=== PATIENT | female | born 1960 | race Caucasian/White ===

== ENCOUNTER → 2018-01-23 11:16 | Emergency (ER) | payer BC ==
--- NOTE | 2018-01-23 16:53 | ED ---
GI/ HPI - HPI Summary HPI Summary: Patient is a 57 year-old female who presents emergency department for bladder pain and pressure that started yesterday. Patient notes she has history of frequent UTIs. She states she has not recently been on an antibiotic. She notes yesterday she felt feverish and had right flank pain but symptoms have improved today. She denies history of kidney stones. Pt. states she has seen numerous urologist without finding etiology of frequent UTIs. She otherwise denies upper respiratory symptoms such as coughing, sore throat, vomiting, diarrhea. Symptoms are [id number] in severity. No current modifying factors. She has no significant past medical history. - History of Current Complaint Hx Obtained From: Patient - Allergy/Home Medications Allergies/Adverse Reactions: Allergies Allergy/AdvReac Type Severity Reaction Status Date / Time MS Codeine [Codeine] Allergy Unknown Wheezing Verified 10/22/16 11:41 MS Penicillins [PCN] Allergy Unknown Wheezing Verified 10/22/16 11:41 PMH/Surg Hx/FS Hx/Imm Hx Previously Healthy: Yes Endocrine/Hematology History: Denies: Hx Diabetes Cardiovascular History: Denies: Hx Hypertension, Hx Pacemaker/ICD History: Denies: Hx Renal Disease Sensory History: Denies: Hx Hearing Aid Psychiatric History: Denies: Hx Panic Disorder - Surgical History Surgery Procedure, Year, and Place: EYELIDS - LIFT. HEAD- SKULL( NOT INTERNAL) - Immunization History Date of Tetanus Vaccine: Unk Infectious Disease History: Denies: Traveled Outside the [place] in Last 30 Days - Family History Known Family History: Positive: Other - Noncontributory - Social History Occupation: Employed Full-time Lives: With Family Substance Use Type: Reports: None Review of Systems Positive: Chills Positive: Other - Suprapubic pain Genitourinary: Negative All Other Systems Reviewed And Are Negative: Yes Physical Exam Triage Information Reviewed: Yes Vital Signs Reviewed: Yes Appearance: Positive: Well-Appearing - Pt. lying in bed in NAD. Well appearing and nontoxic. Skin: Positive: Warm, Dry Head/Face: Positive: Normal Head/Face Inspection Eyes: Positive: Normal Neck: Positive: Supple Respiratory/Lung Sounds: Positive: Clear to Auscultation, Breath Sounds Present Cardiovascular: Positive: Normal, RRR Abdomen Description: Positive: Other: - Abdomen is soft mild pain over the suprapubic region. No rebound tenderness or guarding. No CVA tenderness on percussion bilaterally. Neurological: Positive: Normal, CN Intact II-III Psychiatric: Positive: Affect/Mood Appropriate GIGU Course/Dx - Course Course Of Treatment: Patient resenting with bladder pressure and history of UTIs. She states that yesterday she felt feverish and had some mild right flank pain which have resolved today. Patient is afebrile and well-appearing. On exam she has mild suprapubic abdominal pain and she has absolutely no CVA tenderness bilaterally. Patient has no history of kidney stones. She has been worked up by numerous urologist. Patient is comfortable with obtaining urinalysis today and blood work at this time. Urinalysis is nitrate positive with bacteria and leukocytes. We'll treat with Cipro. Advised increased fluids. Tylenol or Motrin for pain as directed. Close follow-up with PCP. To return to the ER for fever, flank pain, vomiting or if concerned. Patient understands and agrees with this plan. - Diagnoses Differential Diagnoses - Female: Urinary Tract Infection, Ureteral Calculi Provider Diagnoses: UTI (urinary tract infection) Discharge - Sign-Out/Discharge Documenting (check all that apply): Patient Departure - Discharge Plan Condition: Good Disposition: HOME Referrals: Ruben Carrero MD [Primary Care Provider] - - Billing Disposition and Condition Condition: GOOD Disposition: Home
[2018-01-23 18:22] LABS: Urine Appearance Clear; Urine Blood 1+ (Negative); Urine Color Yellow; Urine Ketones Negative (Negative); Urine Protein Negative (Negative); Urine Red Blood Cell 1+(3-5/hpf) (Absent); Urine Specific Gravity 1.008 (1.010-1.030); Urine Urobilinogen Negative (Negative); Urine White Blood Cell 3+(>20/hpf) (Absent)
--- NOTE | 2018-01-25 06:26 | ED ---
Progress - Progress Note Progress Note: Patient's preliminary urine culture reveals greater than 100,000 Escherichia coli. Patient was started on ciprofloxacin and according to note (system was down this day so no formal amb orders placed). Final culture pending. Course/Dx - Course Course Of Treatment: Patient resenting with bladder pressure and history of UTIs. She states that yesterday she felt feverish and had some mild right flank pain which have resolved today. Patient is afebrile and well-appearing. On exam she has mild suprapubic abdominal pain and she has absolutely no CVA tenderness bilaterally. Patient has no history of kidney stones. She has been worked up by numerous urologist. Patient is comfortable with obtaining urinalysis today and blood work at this time. Urinalysis is nitrate positive with bacteria and leukocytes. We'll treat with Cipro. Advised increased fluids. Tylenol or Motrin for pain as directed. Close follow-up with PCP. To return to the ER for fever, flank pain, vomiting or if concerned. Patient understands and agrees with this plan. - Diagnoses Provider Diagnoses: UTI (urinary tract infection) Discharge - Sign-Out/Discharge Documenting (check all that apply): Post-Discharge Follow Up - Discharge Plan Condition: Good Disposition: HOME Referrals: Ruben Carrero MD [Primary Care Provider] - - Billing Disposition and Condition Condition: GOOD Disposition: Home
--- NOTE | 2018-01-26 06:50 | PN ---
Progress Note - Progress Note Date of Service: 01/23/18 Note: Urine culture final grew Escherichia coli Patient was placed on Cipro Cipro sensitive to organism Nothing further this time Dior Lira, PAC
== END | disposition home or self-care (01) ==
LOC: ED 11:16
DX: N39.0 Urinary tract infection, site not specified (principal); B96.20 Unspecified Escherichia coli [E. coli] as the cause of diseases classified elsewhere
CPT/HCPCS: 81003; 81015; 87077; 87086; 87186; 99282

== ENCOUNTER 2018-11-25 07:30 | Inpatient (IN) | payer BC ==
--- NOTE | 2018-11-14 19:04 | HP ---
AMENDED REPORT NOW INCLUDES DESIGNATED COSIGNER HISTORY AND PHYSICAL: DATE OF ADMISSION/SURGERY: 11/25/18 DATE OF OFFICE VISIT: 11/14/18 ATTENDING SURGEON: Dr. Hannah Richardson.* (DICTATED BY WILLIAM FERNANDEZ) PROCEDURE: Right total hip arthroplasty. CHIEF COMPLAINT: Right hip pain. HISTORY OF PRESENT ILLNESS: Ms. Figueroa is a 58-year-old female with years of increasing severe right hip pain. Over the last 3 years, her right hip pain has become more severe. She reports an 8/10 pain in the right groin that is sharp achy pain. Pain is made worse with walking more than a block. The pain is made worse with rotating the hip. In the past, she has tried anti- inflammatories and intraarticular hip injections with minimal or temporary relief. She has tried multiple attempts at weight loss. At this point, she would like to proceed with surgery. PAST MEDICAL HISTORY: GERD, osteoarthritis, and obstructive sleep apnea. PAST SURGICAL HISTORY: Right knee arthroscopy, right elbow surgery. MEDICATIONS: 1. Cyclobenzaprine HCl 10 mg 1 p.o. q.8 hours as needed for muscle spasms. 2. Oxycodone/acetaminophen 5/325 mg 1 to 2 tabs p.o. every 12 hours as needed for pain. 3. Esomeprazole magnesium 20 mg 1 p.o. daily. ALLERGIES: CODEINE and PENICILLIN, both result in rash. FAMILY HISTORY: Negative for cardiovascular disease, diabetes, stroke, hypertension, and cancer. 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 She lives alone. She denies tobacco or recreational drug use. She drinks about 2 alcoholic beverages a week. She is right hand dominant and normally active. REVIEW OF SYSTEMS: General: Negative for fevers, chills, night sweats, unexplained weight loss or gain. No known anesthesia problems. HEENT: Negative for headache, lightheadedness, syncopal episodes, visual changes. Integumentary: Negative for abrasions, lesions, open wounds. Cardiothoracic: Negative for hypertension, chest pain, palpitations, edema. Respiratory: Negative for shortness of breath with exertion, chronic cough, wheezing. GI: Negative for nausea, vomiting, diarrhea, constipation, and GERD. : Positive for urgency, history of UTIs. Negative for nocturia, urinary frequency, or kidney problems. Musculoskeletal: Positive for right hip pain. Negative for chronic or intermittent back pain and history of fractures. Neurologic: Negative for paresthesias, numbness, history of stroke, seizures, poor balance. Negative for anxiety, depression. Endocrine: Negative for diabetes or thyroid issues. Hematologic: Negative for easy bruising, anemia, bleeding disorders, or history of DVT. ID: Negative for history of MRSA, hep C, HIV. PHYSICAL EXAMINATION GENERAL: Well-developed, well-nourished 58-year-old female, in no acute distress. VITAL SIGNS: Height 67 inches, weight 229, pulse 70, BP 116/80, respiratory rate 18, temperature 96.4, BMI 35.9. HEENT: Normocephalic, atraumatic. PERRLA. Extraocular movements intact. NECK: Supple. No palpable lymph nodes. Throat is clear. PULMONARY: Lungs are clear to auscultation bilaterally. No wheezes, rales, or rhonchi. CARDIO: Regular rate and rhythm. S1 and S2 normal. No murmurs, rubs, or gallops. No edema. ABDOMEN: Positive bowel sounds. Soft and nontender. NEUROLOGIC: A and O x3. Cranial nerves II through XII intact. Sensation is intact to light touch. MUSCULOSKELETAL: Right lower extremity: The patient's skin is intact. No abrasions or open sounds. No palpable masses or lymph nodes. She has 85 degrees of flexion at the hip with severe pain. She lacks 10 degrees from neutral and has no internal rotation. Any attempt to rotate the hip causes pain in the groin. She has 30 degrees of external rotation distally. No edema , varicosities, or hyperreflexia. 5/5 ankle dorsiflexion and plantarflexion strength. Full sensation to light touch in all nerve distributions and 2+ palpable DP pulse. 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 There is [id number] contact, osteophyte formation, and subchondral sclerosis. IMPRESSION: Right hip severe osteoarthritis. PLAN: The patient is scheduled to undergo a right total hip arthroplasty with Dr. Richardson on 11/25/18. The procedure as well as the risks and benefits were discussed with the patient by Dr. Richardson and she agrees to proceed. She will return to the office in 10 to 14 days postop for followup and suture removal. Upon discharge from the hospital, she will be given a prescription for Percocet for postoperative pain management. WILLIAM CARMONA [id number]/[facility] #: [id number] [facility] SOUTHAMPTON HOSPITALDriss
[~2018-11-25 07:30] MED LIST: Buffered Lidocaine 1% SYRIN* 1 ML/SYRINGE INTRADERM ONE; Famotidine IV* 10 MG/ML 2 ML (20 mg) IV ONE; Lactated Ringers 1000 ML Bag* 1,000 ML IV SCH; Tranexamic Acid 1,000 MG in NS 0.9% 50 ML* (outpatient use) IV SCH
--- OUTSIDE RECORDS SUMMARY | 2018-11-25 07:34 | XMS REPORT | Continuity of Care Document ---
:1960 External Reference #:[id number] Author Name Amira Chirinos Care Team Providers Name Role Phone Nicole Condon MD Primary Care Physician Unavailable Payers Date Identification Numbers Payment Provider Subscriber Policy Number: [id number] [employer] Thomas Figueroa PayID: [id number] [address] [address] [place] [address] Problems Active Problems Provider Date Dyspnea Maria L Greenberg MD Onset: 08/27/2016 Difficulty breathing Maria L Greenberg MD Onset: 08/27/2016 Gastroesophageal reflux disease Maria L Greenberg MD Onset: 08/27/2016 Obstructive sleep apnea syndrome Maria L Greenberg MD Onset: 09/27/2016 Localized, primary osteoarthritis of the pelvic Hannah Richardson M.D. Onset: 02/2019 region and thigh Trochanteric bursitis Hannah Richardson M.D. 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 Tablets as needed muscle spasms Oxycodone-Acetaminophen 1-2 tabs by 30tabs M25.551 Hannah Richardson, 2018 mouth every 12 M.D. 5-325mg Tablets hours as needed for pain Esomeprazole Magnesium Take 1 Capsule 90caps K21.9 Maria L Yari, 2017 20mg By Mouth Every MD Capsules DR Day History Medications Meloxicam 1 by mouth 14tabs M25.551 Hannah Richardson, 09/12/2018 - 15mg Tablets every day M.D. Unknown No Active Medications Unknown 08/27/2016 - 08/27/2016 Esomeprazole Sodium 1 by mouth 90units K21.9 Maria L Greenberg, 08/27/2016 - every day MD 09/09/2017 20mg Solution Rec Vital Signs Date Vital Result Comment 10/29/2018 8:16am Height 67 inches 5'7" Weight 235.00 lb Heart Rate 75 /min BP Systolic 121 mmHg BP Diastolic 87 mmHg O2 % BldC Oximetry 95 % BMI (Body Mass Index) 36.8 kg/m2 10/10/2018 8:37am Height 67 inches 5'7" Weight 235.00 lb BP Systolic 124 mmHg BP Diastolic 84 mmHg Body Temperature 97.5 F BMI (Body Mass Index) 36.8 kg/m2 09/12/2018 8:51am Height 67 inches 5'7" Weight 239.00 lb Heart Rate 64 /min BP Systolic 128 mmHg BP Diastolic 86 mmHg Pain Level 9 BMI (Body Mass Index) 37.4 kg/m2 09/27/2016 1:58pm Height 67 inches 5'7" Weight 244.00 lb Heart Rate 60 /min BP Systolic Sitting 108 mmHg left arm, large cuff BP Diastolic Sitting 82 mmHg left arm, large cuff Respiratory Rate 16 /min O2 % BldC Oximetry 97 % room air BMI (Body Mass Index) 38.2 kg/m2 08/27/2016 10:17am Height 67 inches 5'7" Weight 240.00 lb Heart Rate 63 /min BP Systolic Sitting 124 mmHg BP Diastolic Sitting 80 mmHg Respiratory Rate 16 /min O2 % BldC Oximetry 94 % BMI (Body Mass Index) 37.6 kg/m2 Results Test Date Facility Test Result H/L Range Note Laboratory test 10/29/2018 [facility] CRP High <pending> finding [address] [place] [address] [phone] Laboratory test 10/29/2018 [facility] Hemoglobin A1c <pending> finding [address] (Glyco HGB) [place] [address] [phone] Insulin Level <pending> Copper, Serum <pending> Zinc Serum <pending> Vitamin B12 And Folate 10/29/2018 [facility] Vitamin B12 < pending> Serum [address] [place] [address] [phone] Folic Acid (Folate) <pending> Laboratory test 10/29/2018 [facility] Vitamin D Total <pending> finding [address]) [place] [address] [phone] Vitamin B6 <pending> Thyroid Panel 10/29/2018 [facility] Free T4 (Free <pending> [address] Thyroxine) [place] [address] [phone] Thyroxine <pending> TSH (Thyroid Stim Horm) <pending> Laboratory test finding 10/29/2018 [facility] T3 Total <pending > [address] [place] [address] [phone] T3 Free <pending> Thyroperoxidase AB <pending> Thyroglobulin AB <pending> Procedures Date Code Description Status 09/11/2016 24476 Sleep Study Unattended,HRT Rate,Oxygen Sat,Resp Completed Effort/Airflow Encounters Type Date Location Provider Dx Diagnosis Office Visit 10/10/2018 [facility] Hannah Richardson, M25.551 Pain in right hip 8:30a [facility] M70.61 Trochanteric bursitis, right hip M16.11 Unilateral primary osteoarthritis, right hip Office Visit 09/12/2018 8:30a [facility] Hannah Richardson M70.61 Tro[facility] bursitis, right C.M.A. 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 at [facility]11/14/2018 1:30 pm - Hannah Richardson M.D. at [facility]10/29/2018 - Rosetta Moran, NPR53.83 Other fatigueFollow up: follow up after your surgery - 8 weeks Will add you to the wellevateRecommendations:Fatigue is multi-factorial food sensitivities can play a role. An elimination diet is a validated approach to try to pin point food sensitivities. Increase healthy fats in the diet with cold pressed extra virgin olive oil, flax seed, hemp oil, fish oil (wild caught EPA/DHA). Nuts, seeds, avocado. Stress can play a large role in fatigue. Daily stress relaxation techniques. Sleep: sleeping 8 hours a day. Exercise: 30-60 minutes daily of exercise. Keeping your blood sugar stable removing high glycemic foods. Adrenal fatigue (HPA [place] dysregulation) - Lifestyle changes can make a difference. Stress is a huge passenger coach driver. Sleep is very important as is diet and exercise. Consider stress reduction techniques. We can consider cortisol and hormonal testing if you do not improve with diet and lifestyle changes Screening Tests: It is important to be up to date on your screening tests for your ageG47.30 Sleep apnea, unspecifiedRecommendations:I would encourage finding a new machine that fits enpzuhC80.50 Pain in unspecified jointRecommendations:Nutrient Support for Inflammation: Campbell-3 fatty acids - 2000 mg/day (non GMO, low Mercury fish oil) Turmeric - 1000 mg/day split in several doses Vitamin C 1000 mg day Zinc 15 mg day N-acetyl cysteine 600 mg twice daily Vitamin D 2000 units/day Stop the fish oil and tumeric 7 days before sciskhuY83.9 Gastro-esophageal reflux disease without esophagitisRecommendations:Change Your Diet Try to eliminate dairy and gluten Eliminate alcohol, caffeine, citrus, tomato-based, and spicy foods. Don??t eat within 3 hours before bed. Don??t eat junk food. Avoid processed foods. Eat cooked foods, like fish, chicken, cooked veggies, Try Some Natural Remedies to Help Soothe the Gut Take 2 to 3 capsules of digestive enzymes with each meal. Re-inoculate the gut with healthy bacteria by using probiotics. Try 75 to 150 mg of zinc carnosine twice a day between meals ?? this hasbeen extensively studied and is used frequently in [place]. Take 3 to 5 grams of glutamine powder in water twice a day to help heal the gut lining. Chew 2 to 3 chewable tablets of DGL (a form of licorice) 15 minutes before meals. Try 200 to 400 mg of magnesium citrate or glycinate twice a day. Try Betaine HCL hknhfcaqoZ96.36 Body mass index (BMI) 36.0-36.9, adultRecommendations:Good Resources Dr. Santana Masters - Ketotarian Cookbook www.dietpSivida - low carb/keto diet website run by a physician great resource!! Dr. Jensen Jackson - Obesity Code - you can on Diet Doctor and he hasa website Dr. Nixon Mcbride - two books: The Rae protocol and her cookbook: Cooking for Life Intermittent fasting 16/8 not eating after 5/6 pm - there is good evidence that time restricted eating can help with weight loss and maintaining weight loss. Eat a large meal for both breakfast and lunch , having a light salad before 6pm. Drink plenty of fluids. Another approach is skipping breakfast. It is important to not under eat. Calories should be around 1500/day - but more focus on carbs A good breakfast could be: hina seed pudding with almond/cashew or hemp milk (unsweetened), 1 cup milk to 3 tablespoons hina seeds. add vanilla, cinnamon (no sugar), can also add unsweetened coconut flakes. Can top with berries, walnuts - high in fiber, protein and low carb. Can be made the night before. Smoothie: 1 canned coconut milk, cup of greens (kale, spinach), 1/2 avocado, a little water/ice, fresh layo (tablespoon or to taste), fresh or concentrated paskenta juice. Recommend first counting your dailycarbohydrates. To lose weight your daily carbs should be between 30-100/day with the goal towards 30-50gm/day. Start eliminating all processed foods, sugars, dairy, alcohol, soda and replace with vegetables, healthy sources of protein, wild caught fish (if you eat), increasing healthy fats such as avocados, olives, extra virgin olive oil. Its important to plan your snacks and meals. Good substitution. Cauliflower rice - Spaghetti squash GREEn PROGRAM MANUFACTURING LEADER meals are great - go for the KETO
[2018-11-25] MEDS ORDERED: fentaNYL* 50 MCG/ML 2 ML VIAL (100 MCG VIAL) ONE (07:55)
[2018-11-25] MEDS ORDERED: Midazolam* 1 MG/ML 5 ML VIAL (5 MG) ONE (07:55)
[2018-11-25] MEDS ORDERED: Clindamycin 900 MG IVPREMIX(* 900 MG/50 ML SDV IV ONE (07:57)
[2018-11-25] MEDS ORDERED: Lidocaine 1% MPF ** 5 ML VIAL ONE (07:57)
[2018-11-25] MEDS ORDERED: Famotidine IV* 10 MG/ML 2 ML (20 mg) ONE ×2 (07:58→08:08)
[2018-11-25] MEDS ORDERED: Buffered Lidocaine 1% SYRIN* 1 ML/SYRINGE INTRADERM ONE (07:58)
[2018-11-25] MEDS ORDERED: ROPIVACAINE 5 MG/ML 30 ML BTL (0.5%) ONE ×2 (07:58→08:37)
[2018-11-25] MEDS ORDERED: Midazolam* 1 MG/ML 2 ML VIAL (2 MG) ONE (10:08)
[2018-11-25] MEDS ORDERED: KETAMINE HCL* 50 MG/ML 10 ML VIAL ONE (10:08)
[2018-11-25] MEDS ORDERED: Bupivacaine 0.25% W/EPI* 10 ML SDV ONE (10:47)
[2018-11-25] MEDS ORDERED: Propofol* 10 MG/ML 20 ML BTL ONE ×2 (10:50→11:24)
[2018-11-25] MEDS ORDERED: Phenylephrine 40 MCG/ML SYRINGE ONE (10:57)
[2018-11-25] MEDS ORDERED: Ketorolac INJ* 30 MG/ML 1 ML VIAL ONE (10:57)
[2018-11-25] MEDS ORDERED: EPHEDrine (Pressors)* 50 MG/ML VIAL ONE (10:57)
[2018-11-25] MEDS ORDERED: DiMENhydriNATE IV* 50 MG/ML VIAL ONE (10:57)
[2018-11-25] MEDS ORDERED: Ondansetron INJ* 2 MG/ML VIAL ONE (10:57)
[2018-11-25] MEDS ORDERED: Dexamethasone IV* 4 MG/ML 1 ML (4 MG) ONE (10:57)
[2018-11-25] MEDS ORDERED: HYDROmorphone INJ1* 1 MG/ML SYRINGE IV PRN (11:31)
[2018-11-25] MEDS ORDERED: Naloxone* 0.4 MG/ML 1 ML VIAL IV PRN (11:31)
[2018-11-25] MEDS ORDERED: DiMENhydriNATE IV* 50 MG/ML VIAL IV PUSH PRN (11:31)
[2018-11-25] MEDS ORDERED: oxyCODONE/Acetamin 5/325 MG* TAB PO PRN (11:31)
[2018-11-25] MEDS ORDERED: Gabapentin CAP(*) 300 MG PO ONE (11:32)
[2018-11-25] MEDS ORDERED: Morphine INJ* 2 MG/ML 1 ML SYRINGE (TWO MG - NEW SYRINGE VERSION) IV PRN (12:52)
[2018-11-25] MEDS ORDERED: diPHENhydraMINE IV* 50 MG/ML 1 ml VIAL (BENADRYL) IV PRN (12:52)
[2018-11-25] MEDS ORDERED: Bisacodyl SUPP* 10 MG SUPP PR PRN (12:52)
[2018-11-25] MEDS ORDERED: Ondansetron INJ* 2 MG/ML VIAL IV PRN (12:52)
[2018-11-25] MEDS ORDERED: Magnesium Hydroxide LIQ* 30 ML UDC PO PRN (12:52)
[2018-11-25] MEDS ORDERED: Polyethylene Glycol 3350* 17 GM PACKET PO PRN (12:52)
[2018-11-25] MEDS ORDERED: Pantoprazole TAB * 40 MG TAB PO PRN (13:01)
[2018-11-25] MEDS ORDERED: Gabapentin CAP(*) 300 MG ONE (13:02)
[2018-11-25] MEDS: Lactated Ringers 1000 ML Bag* 1,000 ML IV SCH (13:52)
[2018-11-25] MEDS: oxyCODONE TAB* 5 MG TAB PO PRN ×2 (14:29→18:24)
--- NOTE | 2018-11-25 15:12 | PN ---
Progress Note - Progress Note Date of Service: 11/25/18 Note: Post-op check: Patient resting comfortably in bed breathing easily, denying CP, or SOB. Pain is well controlled. Patient dorsi/plantar flexes bilateral ankle with intact sensation and 2+ DP pulses. Brisk capillary refill. Will continue to monitor.
[2018-11-25] MEDS: Cyclobenzaprine TAB* 10 MG PO PRN ×2 (16:53→22:26)
[2018-11-25] MEDS: Clindamycin 600 MG IVPREMIX(* 600 MG/50 ML SDV IV SCH (19:37)
--- NOTE | 2018-11-25 19:56 | OP ---
Operative Report - Blank - Operative Report Date of Operation: 11/25/18 Note: GRACE ESPINOSA 1960 Date Of Surgery: 11/25/18 Hannah Richardson MD Hair Tinter: Anurag THOMAS did help throughout the procedure with preparation of the hip, wound retraction, manipulation of the hip, and wound closure. Anesthesiologist: Mariela Last MD Anesthesia Type: Spinal Preoperative Diagnosis: Right severe degenerative osteoarthritis of the hip Postoperative Diagnosis: As above Procedure Performed: Right Total Hip Arthroplasty Complications: None Specimen: Femoral head and acetabular reamings sent to pathology. Hardware used: This is uncemented Hibernia total hip arthroplasty hardware for the femur a size 4 accolade II with 127 neck femoral component, for the acetabulum a size 50 D trident II tritanium cluster hole shell, 2 15mm screws, for the insert a size 32 D polyethylene insert, and for the femoral head a size 32 +0 biolox delta ceramic V40 femoral head. Brief history/Indication: GRACE ESPINOSA was known in clinic and had a history of severe right hip pain. She failed conservative treatment with anti- inflammatories, pain pills, intra-articular injections and physical therapy. She elected to undergo right total hip arthroplasty due to continued pain and decreased quality of life. Radiographs showed severe end stage osteoarthritis of the hip with bone on bone contact. Informed consent was obtained from the patient. She understood the risks of surgery included but were not limited to: bleeding, infection, damage to nearby structures, intraoperative fracture, nerve palsy, failure of the hardware, early loosening, stiffness or loss of motion, dislocation, leg length discrepancy, anesthesia complications, stroke, heart attack, blood clot and . She wished to proceed. Intra-Operative findings: Intraoperatively the patient was noted to have severe loss of cartilage of the acetabulum and femoral head. Description of the Procedure: GRACE ESPINOSA was identified in the preanesthesia unit. Her right hip was marked as the correct operative side. Informed consent was signed and placed in the chart. The patient was taken to the operating room and placed under anesthesia without complication. A chamorro catheter was placed. The patient was placed on the peg board with all bony prominences well padded. The right lower extremity was prepped and draped in the usual sterile fashion. Preoperative time-out was made to correctly identify the patient, side and site. Appropriate intraoperative antibiotics were given within one hour of incision. A standard posterior incision was made and carried sharply down to the lateral fascia. A new 10 blade was used to make an incision in the fascia in line with the skin incision. A charnley retractor was placed. The piriformis and conjoined tendons were identified and elevated off the posterolateral femur using electrocautery. These were tagged with number 5 Ethibond. Next electrocautery was used to make a posterolateral capsular flap and this was tagged with number 5 Ethibonds. The hip was carefully dislocated. Lesser trochanter to the center of the femoral head was measured at 50 mm. The oscillating saw was used to make the femoral neck cut. The femoral head was carefully removed. The femur was retracted anteriorly and the acetabular retractors were placed. Long-handled knife was used to sharply remove any remaining labrum from the acetabular rim. The acetabulum was sequentially reamed up to a size 49. A bleeding subchondral bone bed was obtained. A trial liner was placed and had excellent fit and stability. A 50D trident II tritanium cup with two 15mm screws was placed and had excellent stability with appropriate anteversion and abduction angle. A size 32D polyethylene liner was impacted into the acetabular shell. The liner was checked for stability and was stable. Next attention was turned to preparation of the femoral canal. A canal finder was used to enter the proximal femur. The femoral canal was sequentially broached up to a size 4 femoral broach trial. A trial neck and 32 + 0 trial femoral head was chosen. Lesser trochanter to center of the femoral head measurement was satisfactory. The hip was reduced and taken through a range of motion. The hip was stable in all positions with good soft tissue tension and appropriate leg lengths. The hip was dislocated and all trials were removed. The final implant chosen was a accolade II size 4 with 127 degree neck. This stem was impacted into the femoral canal without difficulty. The stem was stable with appropriate anteversion. The femoral head chosen was a 32 + 0 ceramic head. The head was impacted onto the femoral neck without difficulty. The final lesser trochanter to center of the femoral head measurement was satisfactory. The hip was reduced and taken through a range of motion. The hip was stable in all positions with good soft tissue tension and appropriate leg lengths. The hip was copiously irrigated with sterile saline. The previously tagged capsule and tendons were repaired to the posterolateral femur through two trochanteric drill holes. The lateral fascia layer was closed using number 1 vicryls. The rest of the incision was closed in a layered fashion using 0 and 2-0 vicryls. The skin was closed using 3-0 monocryl suture and Dermabond. Sterile adaptic, 4x4s and paper tape was used to cover the incision. The patients anesthesia was reversed without difficulty. She was taken to the PACU in stable condition. Intended weight-bearing will be as tolerated with posterior hip precautions.
[2018-11-25] MEDS: Docusate CAP* 100 MG PO SCH (22:26)
[2018-11-25] MEDS: oxyCODONE/Acetamin 5/325 MG* TAB PO PRN (22:26)
[2018-11-25] MEDS: Magnesium Hydroxide LIQ* 30 ML UDC PO SCH (22:29)
[2018-11-26] MEDS: oxyCODONE TAB* 5 MG TAB PO PRN ×5 (00:49→19:24)
[2018-11-26] MEDS: oxyCODONE/Acetamin 5/325 MG* TAB PO PRN ×5 (03:26→21:34)
[2018-11-26] MEDS: Clindamycin 600 MG IVPREMIX(* 600 MG/50 ML SDV IV SCH ×2 (03:27→11:21)
[2018-11-26 06:32] LABS: Hematocrit 27 % (35-47); Hemoglobin 9.5 g/dL (12.0-16.0); Mean Platelet Volume 8.4 fL (7.4-10.4); Platelet Count 152 10^3/uL (150-450)
[2018-11-26 06:55] LABS: BUN/Creatinine Ratio 16.2 (8-20); Calcium 8.1 mg/dL (8.6-10.3); EGFR African American 107.5 (>60); EGFR Non-African American 88.9 (>60); Potassium 4.3 mmol/L (3.5-5.0)
[2018-11-26] MEDS: Docusate CAP* 100 MG PO SCH ×2 (08:31→21:34)
[2018-11-26] MEDS: Vitamin THERAPEUTIC TAB PO SCH (08:31)
[2018-11-26] MEDS: Apixaban* 2.5 MG TAB PO SCH ×2 (08:31→21:34)
[2018-11-26] MEDS: Magnesium Hydroxide LIQ* 30 ML UDC PO SCH ×2 (08:32→21:35)
[2018-11-26] MEDS: Lactated Ringers 1000 ML Bag* 1,000 ML IV SCH ×2 (10:42)
--- NOTE | 2018-11-26 13:08 | PN ---
Progress Note - Progress Note Date of Service: 11/26/18 SOAP: Subjective: []Patient seen and examined at bedside. She feels well this morning but had a difficult night with pain. Denies CP, SOB, dizziness or nausea. Objective: []Gen: NAD, appears well RLE: Right hip dressing CDI, thigh soft, DP2+, DF/PF intact, sensation intact to light touch distally Calves supple and nontender without erythema, edema or palpable cords Assessment: []POD 1 sp RTH Plan: []WBAT PT/OT eliquis 2.5 mg po BID Plan for DC home tomorrow repeat sodium tomorrow Vital Signs Temp 98.2 F 11/26/18 11:49 Pulse 68 11/26/18 11:49 Resp 18 11/26/18 12:45 BP 117/65 11/26/18 11:49 Pulse Ox 99 11/26/18 11:49 Intake & Output 11/25/18 11/26/18 11/26/18 18:59 06:59 18:59 Intake Total 2240 2080 1858 Output Total 600 2750 Balance 1640 -670 1858 Weight 226 lb Intake: IV Fluids 1999 980 990 LR 1400 980 990 NS 600 IVPB 58 LR 58 Oral 240 1100 810 Output: Johnson 600 2750 Other: # Bowel Movements 0 Laboratory Last Values Hgb 9.5 g/dL (12.0-16.0) L 11/26/18 06:19 Hct 27 % (35-47) L 11/26/18 06:19 Plt Count 152 10^3/uL (150-450) 11/26/18 06:19 MPV 8.4 fL (7.4-10.4) 11/26/18 06:19 Sodium 132 mmol/L (135-145) L 11/26/18 06:19 Potassium 4.3 mmol/L (3.5-5.0) 11/26/18 06:19 Chloride 101 mmol/L (101-111) 11/26/18 06:19 Carbon Dioxide 24 mmol/L (22-32) 11/26/18 06:19 Anion Gap 7 mmol/L (2-11) 11/26/18 06:19 BUN 11 mg/dL (6-24) 11/26/18 06:19 Creatinine 0.68 mg/dL (0.51-0.95) 11/26/18 06:19 Est GFR ( Amer) 107.5 (>60) 11/26/18 06:19 Est GFR (Non-Af Amer) 88.9 (>60) 11/26/18 06:19 BUN/Creatinine Ratio 16.2 (8-20) 11/26/18 06:19 Glucose 139 mg/dL (70-100) H 11/26/18 06:19 Calcium 8.1 mg/dL (8.6-10.3) L 11/26/18 06:19
[2018-11-27] MEDS: oxyCODONE TAB* 5 MG TAB PO PRN ×3 (00:11→09:02)
[2018-11-27 05:41] LABS: Hematocrit 30 % (35-47); Hemoglobin 10.4 g/dL (12.0-16.0); Mean Platelet Volume 8.8 fL (7.4-10.4); Platelet Count 161 10^3/uL (150-450)
[2018-11-27] MEDS ORDERED: Scopolamine 1.5 mg* PATCH TRANSDERM SCH (09:00)
[2018-11-27] MEDS: Docusate CAP* 100 MG PO SCH ×2 (09:02→21:57)
[2018-11-27] MEDS: Vitamin THERAPEUTIC TAB PO SCH (09:02)
[2018-11-27] MEDS: Apixaban* 2.5 MG TAB PO SCH ×2 (09:02→21:57)
[2018-11-27] MEDS: Magnesium Hydroxide LIQ* 30 ML UDC PO SCH ×2 (09:03→21:59)
[2018-11-27] MEDS ORDERED: NS 0.9% 1000 ML** 1,000 ML IV ONE (10:26)
--- NOTE | 2018-11-27 10:30 | PN ---
Progress Note - Progress Note Date of Service: 11/27/18 SOAP: Subjective: []Patient seen at bedside this morning, she feels tired. Denies CP, SOB. She feels nauseous, mild dizziness with change of position which resolves with rest. Hyponatremia 132 yesterday improved to 133 today. Objective: []Gen: NAD, appears well RLE: Right hip dressing changed by Dr Richardson this morning, remains CDI, thigh soft, DP2+, DF/PF intact, sensation intact to light touch distally Calves supple and nontender without erythema, edema or palpable cords Assessment: []POD 2 sp RTH Plan: []WBAT PT/OT eliquis 2.5 mg po BID Called at 1015 and went directly to bedside to see patient for hypotension when up with PT BP 64/41, hospitalist also called. Upon arrival to the room patient is sitting comfortably in the recliner trendelenburg and BP 109/59, carrying on appropriate conversation. POC glucose of 90. Dr Braun also saw her, our orders include EKG, CXR, NS bolus, tele monitoring. I have decreased her pain medication to tramadol 50 mg q 6 hr for mild pain, discussed with nursing to use this primarily and try to avoid percocet and oxycodone. Decreased to 1 tab rather than 2 of percocet 5/325 mg q 4 hr for moderate pain and likewise to 1 tab rather than 2 of oxycodone 5mg q4hr for severe pain. Denies any chest pain, shortness of breath, history of IL or other cardiac events. Denies hx blood clot. Vital Signs Temp 98 F 11/27/18 08:11 Pulse 86 11/27/18 10:16 Resp 18 11/27/18 09:02 BP 109/59 11/27/18 10:16 Pulse Ox 96 11/27/18 08:11 Intake & Output 11/26/18 11/27/18 11/27/18 18:59 06:59 18:59 Intake Total 2340 900 230 Output Total 1500 1200 500 Balance 840 -300 -270 Intake: IV Fluids 1207 LR 1207 IVPB 113 LR 113 Oral 1020 900 230 Output: Urine 1500 1200 500 Other: # Bowel Movements 0 Laboratory Last Values Hgb 10.4 g/dL (12.0-16.0) L 11/27/18 05:28 Hct 30 % (35-47) L 11/27/18 05:28 Plt Count 161 10^3/uL (150-450) 11/27/18 05:28 MPV 8.8 fL (7.4-10.4) 11/27/18 05:28 Sodium 133 mmol/L (135-145) L 11/27/18 05:28 Potassium 4.3 mmol/L (3.5-5.0) 11/26/18 06:19 Chloride 101 mmol/L (101-111) 11/26/18 06:19 Carbon Dioxide 24 mmol/L (22-32) 11/26/18 06:19 Anion Gap 7 mmol/L (2-11) 11/26/18 06:19 BUN 11 mg/dL (6-24) 11/26/18 06:19 Creatinine 0.68 mg/dL (0.51-0.95) 11/26/18 06:19 Est GFR ( Amer) 107.5 (>60) 11/26/18 06:19 Est GFR (Non-Af Amer) 88.9 (>60) 11/26/18 06:19 BUN/Creatinine Ratio 16.2 (8-20) 11/26/18 06:19 Glucose 139 mg/dL (70-100) H 11/26/18 06:19 Calcium 8.1 mg/dL (8.6-10.3) L 11/26/18 06:19
[2018-11-27] MEDS ORDERED: oxyCODONE TAB* 5 MG TAB PO PRN (10:32)
[2018-11-27] MEDS ORDERED: oxyCODONE/Acetamin 5/325 MG* TAB PO PRN (10:33)
[2018-11-27 11:04] LABS: ABS Lymphocytes 1.5 10^3/ul (1.0-4.8); ABS Monocytes 0.9 10^3/ul (0-0.8); ABS Neutrophils 6.4 10^3/ul (1.5-7.7); Eosinophil % 0.5 %; Hematocrit 30 % (35-47); Hemoglobin 10.3 g/dL (12.0-16.0); Lymphocyte % 17.1 %; Mean Corpuscular HGB Conc 35 g/dL (31-36); Mean Corpuscular Hemoglobin 32 pg (27-31); Mean Corpuscular Volume 94 fL (80-97); Mean Platelet Volume 8.3 fL (7.4-10.4); Platelet Count 174 10^3/uL (150-450); Red Blood Count 3.17 10^6 /uL (3.70-4.87); Red Cell Distribution Width 12 % (10-15); White Blood Count 8.8 10^3/uL (3.5-10.8)
[2018-11-27 11:28] LABS: Troponin I 0.07 ng/mL (<0.04)
[2018-11-27 11:32] LABS: ALT 22 U/L (7-52); AST 27 U/L (13-39); Albumin 3.5 g/dL (3.2-5.2); Albumin/Globulin Ratio 1.5 (1-3); Alkaline Phosphatase 43 U/L (34-104); Anion Gap 4 mmol/L (2-11); BUN/Creatinine Ratio 9.8 (8-20); Blood Urea Nitrogen 8 mg/dL (6-24); CO2 Carbon Dioxide 29 mmol/L (22-32); Calcium 8.4 mg/dL (8.6-10.3); Chloride 100 mmol/L (101-111); EGFR African American 86.6 (>60); EGFR Non-African American 71.6 (>60); Globulin 2.3 g/dL (2-4); Glucose 114 mg/dL (70-100); Sodium 133 mmol/L (135-145); Total Protein 5.8 g/dL (6.4-8.9)
[2018-11-27] MEDS ORDERED: Iohexol 350* (CONTRAST) 500 ML MDV IV ONE (11:54)
[2018-11-27] MEDS: Lactated Ringers 1000 ML Bag* 1,000 ML IV SCH ×2 (12:47→19:40)
[2018-11-27] MEDS: traMADol TAB* 50 MG PO PRN ×2 (12:51→18:59)
[2018-11-27] MEDS: Acetaminophen TAB* 325 MG PO PRN ×2 (12:51→21:57)
[2018-11-27 15:07] LABS: Troponin I 0.17 ng/mL (<0.04)
--- NOTE | 2018-11-27 16:17 | CONS ---
CC: Dr. Nicole Condno; Dr. Hannah Richardson CONSULTATION REPORT: DATE OF CONSULT: 11/27/18 TIME OF EVALUATION: 10:30 a.m. PRIMARY CARE PROVIDER: Dr. Nicole Condon. REQUESTING PHYSICIAN: Dr. Hannah Richardson. CHIEF COMPLAINT: "I was dizzy." HISTORY OF PRESENT ILLNESS: Mrs. Figueroa is a 58-year-old lady with a past medical history of GERD, os teoarthritis, obstructive sleep apnea who was admitted for an elective right total hip arthroplasty p erformed by Dr. Richardson on 11/25/18. The patient had been seen by her PCP prior to her surgery and was deemed to have an RCRI of 0. Today, I was called because the patient had a blood pressure of 64/41 while walking to the bathroom a nd she was feeling dizzy. The patient states that yesterday when she got up she did feel some dizziness, but they measured her blood pressure and it was around 120/70 and she just went back to the recliner and eventually the diz ziness passed. She states that today when she got up from bed she was feeling okay, although it took her some tries to be able to stand up, but then by the time she got to the bathroom, she had some di scomfort between her shoulder blades and she felt dizzy. She was described as pale and diaphoretic. She was helped back to her recliner, the recliner was put in a lower position, and the initial blood pressure was 64/41 with a heart rate of 85. By the time I arrived to the room, the patient was feel ing improved and her blood pressure was up to 109/59. She denied chest pain, palpitations, nausea, vomiting, diarrhea, or urinary complaints. PAST MEDICAL HISTORY: 1. GERD. 2. Obstructive sleep apnea. 3. Osteoarthritis, status post right hip arthroplasty. MEDICATION LIST: At the time of evaluation: 1. Acetaminophen 650 mg p.o. q.8 hours p.r.n. pain. 2. Apixaban 2.5 mg p.o. b.i.d. 3. Dulcolax 10 mg per rectum daily as needed for constipation. 4. Cyclobenzaprine 5 mg p.o. t.i.d. as needed for spasms. 5. Diphenhydramine 25 mg IV q.6 hours p.r.n. itching. 6. Colace 100 mg p.o. b.i.d. 7. Lactulose 30 mL p.o. q.6 hours p.r.n. constipation. 8. Lactated Ringer's 150 mL an hour. 9. Magnesium hydroxide 30 mL p.o. q.6 hours p.r.n. constipation. 10. Morphine 2 mg IV q.2 hours p.r.n. pain. 11. Ondansetron 4 mg IV q.6 hours p.r.n. nausea. 12. Oxycodone 5 mg p.o. q.4 hours p.r.n. pain. 13. Pantoprazole 40 mg p.o. daily as needed for GERD. 14. MiraLAX 17 g p.o. daily p.r.n. constipation. 15. Scopolamine patch 1.5 mg topical. 16. Tramadol 50 mg p.o. q.6 hours p.r.n. pain. 17. Multivitamin 1 tablet p.o. daily. ALLERGIES: To CODEINE and PENICILLINS. FAMILY HISTORY: Father had hypertension and maternal aunt had breast cancer. SOCIAL HISTORY: The patient is a former smoker. She quit in 1984. No history of drug use. Surroga te decision maker is her mother, Aliza Figueroa, phone number is [phone]. REVIEW OF SYSTEMS: A 14-point review of systems was performed and all the pertinent negative and pos itive findings are in the HPI. PHYSICAL EXAM: Vital Signs: Temperature 98.6, heart rate is 88, respiratory rate is 20, oxygen satu ration is 100% on room air, blood pressure is 133/72. General: The patient is a pleasant lady, lying in a recliner, in no acute distress. HEENT: Pupils are equal. Moist mucous membranes. CVS: Karen l S1, S2. Regular rate and rhythm. Chest: Breath sounds present bilaterally with no added sounds. Abdomen is soft, nontender. Bowel sounds are present. Extremities: There is no edema. There is go od capillary refill. She has a clean dressing intact to her right hip and thigh is soft and sensatio n is intact. Neuro: She is alert and oriented x3. Able to move all 4 extremities. DIAGNOSTIC STUDIES/LAB DATA: The patient had a CBC that showed WBC of 8.8, hemoglobin of 10.3, hemat ocrit of 30, platelets of 174 with 72% neutrophils. Chemistry showed a sodium of 133, potassium of 4, chloride of 100, bicarb of 29, BUN of 8, creatinine of 0.8, glucose of 114, calcium is 8.4, lactic a portia is 1.1. LFTs were normal. First troponin was 0.07 and second troponin was 0.17. Chest x-ray done 11/27/18 at 10:20 a.m. showed no evidence for active cardiopulmonary disease. EKG done 11/27/18 at 10:27 a.m. showed sinus rhythm at 83 beats per minute with no ST-T changes. It is essentially a normal EKG. CTA of the chest showed no pulmonary embolus noted, no evidence of aortic dissection is present, comm on origin of the innominate artery and left common carotid artery, right middle lobe nodule measuring 0.5 cm for which 6-month followup is suggested. ASSESSMENT AND PLAN: Mrs. Figueroa is a 58-year-old lady with a past medical history of gastroesophagea l reflux disease, obstructive sleep apnea, osteoarthritis, status post right hip arthroplasty on 11/04 07/22 who had a near syncopal episode today with a blood pressure of 64/41. 1. Near syncope. The patient's hypotension seems to be secondary to her postop state and dehydratio n as she states that due to nausea she has not been able to keep up with her oral intake, but with he r recent postop state, there was concern for possible pulmonary embolism that has been ruled out with a CTA of the chest. Although her EKG is normal, she has had a slight bump of her troponin at 0.07 an d now 0.17. She is currently asymptomatic. We are going to do serial EKGs and check serial troponin s until peak. A transthoracic echocardiogram was requested and I will request a cardiology consultat ion with Dr. Mane. She received a liter of IV fluid bolus with improvement of her blood pressure a nd we will increase her baseline IV fluid rate. She will be monitored on telemetry. 2. Status post right hip arthroplasty. Management as per Orthopedics. 3. DVT prophylaxis: The patient is on apixaban as per Orthopedics. 4. Code status is full. TIME SPENT: Approximately 50 minutes was spent with the patient's interview, medical records review, physical examination to complete this consultation, more than half of this time was spent face-to-fa ce with the patient and coordination of care. [id number]/[facility] #: [id number]
[2018-11-27 17:37] LABS: Troponin I 0.16 ng/mL (<0.04)
--- NOTE | 2018-11-27 19:30 | PN ---
Hospitalist Progress Note Date of Service: 11/27/18 HOSPITALIST ADDENDUM BP remains normal, serial EKGs show no acute ischemic changes. Troponins 0.07/0.17/0.16. CTA chest showed "no pulmonary embolus is noted. No evidence of aortic dissection is present. Common origin of the innominate artery and left common carotid artery. Right middle lobe nodule measuring 0.5 cm for which six-month follow-up is suggested" (this will need to be arranged as outpatient). Suspect her near syncopal episode was secondary to dehydration with severe hypotension. Echocardiogram report still pending. Will continue to monitor on Telemetry.
--- NOTE | 2018-11-27 23:10 | ECHO ---
*[facility]* [place] [address] Fax #: [phone] Transthoracic Echocardiogram Patient: Thomas Figueroa : 1960 Study Date: 11/27/2018 Age: 58 Gender: F HR: 78 bpm Height: 67 in /170.2 cm BSA: 2.13 m^2 Weight: 225.5 lb /102.5 kg BMI: 35.4 kg/m^2 *Shipping Coordinator: * Jessiac Chapa RDCS RN *Referring Physician: * Kiya BurciagaReading Physician: * Aquilino Mane MD Indications: Syncope. History: Hypotension and near syncope S/P right hip replacement. Functional status: Obstructive sleep apnea. Risk factors: Obese. Conclusions Summary: - Left ventricle: Systolic function is normal. The estimated ejection fraction is 55-60%. - Tricuspid valve: There is mild-moderate regurgitation. - Pulmonary arteries: Systolic pressure is mildly to moderately increased, estimated to be 44 mm Hg. Study data: Transthoracic echocardiogram. Procedure: Transthoracic echocardiography was performed. The study was technically limited due to restricted patient mobility and body habitus. Complete 2D, spectral Doppler, and color flow Doppler. Location: Bedside. Patient status: Inpatient. Patient room number: 349-02. No prior study is available for comparison. Rhythm: Normal sinus rhythm. Findings Left ventricle: The cavity size is normal. The septal wall thickness is mildly increased. Systolic function is normal. The estimated ejection fraction is 55-60%. Wall motion is normal; there are no regional wall motion abnormalities. There is turbulence and increased velocities in the left ventricular outflow tract. There is no systolic anterior motion of the mitral valve or increased velocity with Valsalva. There is no consistent Doppler evidence of clinically significant diastolic dysfunction. Right ventricle: The cavity size is normal. Systolic function is low normal. Left atrium: The atrium is normal in size. Right atrium: The atrium is normal in size. Mitral valve: The valve is structurally normal. There is no evidence of stenosis. There is trace regurgitation. Aortic valve: The valve is trileaflet. The leaflets are mildly thickened. There is no evidence of stenosis. There is no regurgitation. Tricuspid valve: The valve is structurally normal. There is no evidence of stenosis. There is mild-moderate regurgitation. Pulmonic valve: Not well visualized. There is no evidence of stenosis. There is mild regurgitation. Aorta: Aortic root: The aortic root is not dilated. Ascending aorta: The ascending aorta is not dilated. Aortic arch: The aortic arch is not dilated. Pericardium: There is no pericardial effusion. Pulmonary arteries: The main pulmonary artery is normal-sized. Systolic pressure is mildly to moderately increased, estimated to be 44 mm Hg. Systemic veins: Inferior vena cava: The vessel is normal in size. There is (>= 50%) respiratory change in the IVC dimension. Measurements Left ventricle Value Ref Aortic valve continued Value Ref JUAN, LAX 4.3 cm 3.8 - VTI, S 35.7 cm ----- 5.2 Mean grad, S 10.0 mm Hg ----- ESD, LAX 3.0 cm 2.2 - Peak grad, S 16.0 mm Hg ----- 3.5 LVOT/AV, VTI ratio 0.69 ----- PW, ED 0.9 cm 0.6 - 0.9 Mitral valve Value Ref IVS/PW, ED 1.22 -------- Peak E 0.87 m/sec ----- E', lat anahi, TDI 10.9 cm/sec >=10.0 Peak A 0.91 m/sec - ---- E/e', lat anahi, TDI 8 -------- Decel time 243 ms ---- - E', med anahi, TDI 10.1 cm/sec >=7.0 Peak grad, D 3.0 mm Hg - ---- E/e', med anahi, TDI 9 -------- Peak E/A ratio 1 ---- - E', avg, TDI 10.5 cm/sec -------- E/e', avg, TDI 8 <=14 Pulmonic valve Value R ef Peak v, S 1.1 m/sec ----- LVOT Value Ref Peak jerome, S 1.4 m/sec -------- Tricuspid valve Value Ref VTI, S 24.6 cm -------- TR peak v (H) 3.2 m/sec <=2.8 Peak grad, S 8 mm Hg -------- Peak RV-RA grad, S 41 mm Hg ----- Mean grad, S 5 mm Hg -------- Max TR jerome 3.2 m/sec ----- Ventricular septum Value Ref Aortic root Value Ref IVS, ED (H) 1.1 cm 0.6 - Root diam 2.9 cm <4.2 0.9 Ascending aorta Value Ref Right ventricle Value Ref AAo AP diam, S 3.4 cm ----- JUAN minor ax, A4C (H) 3.7 cm 1.9 - mid 3.5 Aortic arch Value Ref Pressure, S 44 mm Hg -------- Arch diam 3.1 cm ----- Left atrium Value Ref Decending aorta Value Ref ML dim, A4C 4.7 cm -------- Zeke peak jerome 1.4 m/sec ----- SI dim, A4C 5.2 cm -------- Vol/bsa, ES, 1-p 31 ml/m^2 11 - 40 Pulmonary artery Value Ref A4C Pressure, S 44.0 mm Hg ----- Vol/bsa, ES, A/L 30 ml/m^2 16 - 34 Inferior vena cava Value Ref Right atrium Value Ref Diam 1.6 cm ----- ML dim, ES, A4C 4.3 cm 2.6 - 4.4 SI dim, ES, A4C 5.2 cm 3.4 - 5.3 Estimated RAP 3 mm Hg -------- Aortic valve Value Ref Anahi diam, ED 2.0 cm -------- Peak v, S 2 m/sec -------- Legend: (L) and (H) madi values outside specified reference range. Prepared and electronically signed by Aquilino Mane MD 11/27/2018 23:09
[2018-11-28] MEDS: traMADol TAB* 50 MG PO PRN ×3 (01:14→13:20)
[2018-11-28] MEDS ORDERED: Acetaminophen TAB* 325 MG PO ONE ×2 (01:20→13:20)
[2018-11-28] MEDS: Lactated Ringers 1000 ML Bag* 1,000 ML IV SCH ×2 (02:16→09:13)
[2018-11-28 06:06] LABS: Hematocrit 29 % (35-47); Hemoglobin 9.9 g/dL (12.0-16.0); Mean Platelet Volume 8.3 fL (7.4-10.4); Platelet Count 196 10^3/uL (150-450)
[2018-11-28] MEDS: Vitamin THERAPEUTIC TAB PO SCH (07:30)
[2018-11-28] MEDS: Acetaminophen TAB* 325 MG PO PRN (07:30)
[2018-11-28] MEDS: Docusate CAP* 100 MG PO SCH (07:30)
[2018-11-28] MEDS: Apixaban* 2.5 MG TAB PO SCH (07:30)
[2018-11-28] MEDS: Magnesium Hydroxide LIQ* 30 ML UDC PO SCH (07:31)
--- NOTE | 2018-11-28 11:29 | DS ---
Orthopedic Discharge Summary - Discharge Summary Date of Admission:11/25/18 Date of Discharge: 11/28/18 Date of Surgery: 11/25/18 Attending Orthopedic Provider: Dr. Richardson Pre-operative Diagnosis: degenerative arthritis right hip Operative Procedure: Right total hip arthroplasty Disposition of Patient: home Condition of Patient: stable History: GRACE ESPINOSA is a 58 year old F with years of increasingly severe right hip pain. Patient has failed conservative management and has elected to undergo a right total hip replacement Hospital Course: GRACE was admitted to [facility] on 11/25/18. Patient underwent a right total hip without complication followed by a brief recovery in PACU and transfer to the Short Stay Surgical Unit in stable condition. Our hospitalist service, physical therapy and occupational therapy also participated in this patients care. Post-op day 1: patient was alert and in no acute distress. Dressing was clean, dry and intact. Operative extremity dorsiflexion and plantarflexion intact, sensation intact to light touch distally , DP2+. Post-op day two: dressing was changed, incision was clean, dry and intact.She had an episode of syncope with hypotension and was evaluated by the hospitalist group. She had a CTA which was negative for PE, but found an incidental nodule on Carotid left artery. Recommendation to follow up with PCP regarding this. Her EKG and ECHO done, also without significant findings. Her troponins remained stable. She had no further episodes of syncope, lightheadedness, no chest pain or shortness of breath. Patient was deemed to be medically and orthopedically stable for discharge. Physical therapy goals were met. Home Medications Medication Instructions Recorded Confirmed Type Cyclobenzaprine TAB* [Flexeril 10 10 mg PO Q8H PRN 11/14/18 11/25/18 History MG TAB*] Esomeprazole Magnesium [Nexium 20 mg PO DAILY PRN 11/14/18 11/25/18 History 24Hr] Apixaban* [Eliquis*] 2.5 mg PO BID #60 tab 11/28/18 Rx Docusate CAP* [Colace Cap*] 100 mg PO BID cap 11/28/18 Rx traMADol TAB* [Ultram*] 50 mg PO Q6H PRN #30 tab MDD 4 11/28/18 Rx Please follow up with PCP regarding incidental finding of pulmonary nodule on CT scan, size 0.5 cm requiring follow up in 6 months Discharge Instructions following Orthopedic Surgery: Activity: * Weight Bearing as tolerated * Continue physical therapy and occupational therapy exercises as shown Hip replacements: Continue Hip Precautions- do not cross legs or bend greater than 90 degrees/squat Wound care: * OK to shower on post-op day 3, no bathing, swimming, or submerging wound. * Use gentle soap, pat dry. Cover with gauze, OLE wrap or tape. * Visiting home nurse to do wound checks. Call Orthopedic office for: * Increased drainage * Redness * Increased pain * Fever Go to ER with shortness of breath or chest pain. Diet: * Regular diet * Increase fluids and fiber to prevent constipation. * Continue to use stool softeners, call office if no bowel motion within 48 hours. Medications See Home Medication List in your packet for medications that you should take after discharge. DVT Prophylaxis: Eliquis Dosin.5 mg, 1 tab every 12 hours x 30 days Pain Control: tramadol 50 mg q 6 hrs prn pain . Antibiotics are required prior to any dental work. FOLLOW UP: Follow up with Dr. Richardson Within 10-14 days, call for appointment Please call our office with any questions or concerns ([phone])
[2018-11-28 11:38] VITALS: BP 116/69
--- NOTE | 2018-11-28 13:08 | PN ---
Progress Note - Progress Note Date of Service: 11/28/18 Note: I reviewed yesterday's events with the patient and discussed management. She had opioids yesterday and didn't eat much of anything. She never had chest pain. She feels much better today and ate her whole breakfast. I discussed the incidental finding of a 0.5 cm pulmonary nodule and the need to get a fup CT in 6 months. I advised her to discuss further cardiac testing with her PCP, Dr. Condon.
[2018-11-28] MEDS ORDERED: Acetaminophen TAB* 325 MG ONE (13:18)
[2018-11-28] MEDS ORDERED: traMADol TAB* 50 MG ONE (13:18)
[2018-11-28] MEDS ORDERED: traMADol TAB* 50 MG PO ONE (13:20)
== END 2018-11-28 13:50 | disposition home health service (06) | DRG 301 ==
LOC: AA 07:30 → SSU 12:52 → UNDODISIN 11-28 11:41
PROVIDERS: ADMIT Orthopaedic Surgery Adult Reconstructive Orthopaedic Surgery; ATTEND Orthopaedic Surgery Adult Reconstructive Orthopaedic Surgery
PROC: 0SR904A Replacement of Right Hip Joint with Ceramic on Polyethylene Synthetic Substitute, Uncemented, Open Approach (ICD-10-PCS; principal; 2018-11-25 10:00)
DX: M16.11 Unilateral primary osteoarthritis, right hip (principal); E87.1 Hypo-osmolality and hyponatremia; R55 Syncope and collapse; I95.9 Hypotension, unspecified; I77.89 Other specified disorders of arteries and arterioles; K21.9 Gastro-esophageal reflux disease without esophagitis; G47.33 Obstructive sleep apnea (adult) (pediatric); N39.41 Urge incontinence; R91.1 Solitary pulmonary nodule; F41.9 Anxiety disorder, unspecified; Z88.5 Allergy status to narcotic agent; Z88.0 Allergy status to penicillin; Z72.89 Other problems related to lifestyle; Z87.440 Personal history of urinary (tract) infections; Z78.0 Asymptomatic menopausal state; Z82.49 Family history of ischemic heart disease and other diseases of the circulatory system; Z80.3 Family history of malignant neoplasm of breast; Z87.891 Personal history of nicotine dependence
CPT/HCPCS: 36415; 71045; 71275; 80048; 80053; 83605; 84300; 84484; 85014; 85018; 85025; 85049; 88304; 88311; 93005; 93306; A9270-GY; C1713; C1776; J1100; J1200; J1240; J1885; J2250; J2405; J2704; J2795; J3010; Q9967

== ENCOUNTER 2022-05-17 06:32 | Inpatient (IN) ==
[~2022-05-17 06:32] MED LIST changes: +Buffered Lidocaine 1% SYRIN 1 ml INTRADERM ONE; -Buffered Lidocaine 1% SYRIN* 1 ML/SYRINGE INTRADERM ONE; -Famotidine IV* 10 MG/ML 2 ML (20 mg) IV ONE; -Lactated Ringers 1000 ML Bag* 1,000 ML IV SCH; +Lactated Ringers 1000 ml BAG 1,000 ML IV SCH; -Tranexamic Acid 1,000 MG in NS 0.9% 50 ML* (outpatient use) IV SCH
[2022-05-17] MEDS ORDERED: fentaNYL 100 mcg/2 ml 50 MCG/ML VIAL ONE ×2 (06:56→12:30)
[2022-05-17] MEDS ORDERED: Phenylephrine IV 10 MG/ML 1 ml VIAL ONE (06:58)
[2022-05-17] MEDS ORDERED: Midazolam 5 mg/5 ml VIAL 1 mg/ml 5 ml VIAL (5 mg) ONE (06:58)
[2022-05-17] MEDS ORDERED: Dexamethasone IV 4 MG/ML VIAL 1 ml VIAL ONE (06:58)
[2022-05-17] MEDS ORDERED: Lidocaine 2% PF 5 ML VIAL ONE (06:58)
[2022-05-17] MEDS ORDERED: Acetaminophen IV 1 GM/100ML 1,000 MG/100 ML BAG IV ONE (06:58)
[2022-05-17] MEDS ORDERED: Ondansetron 4 mg VIAL 2 MG/ML 2 ml VIAL ONE (06:58)
[2022-05-17] MEDS ORDERED: Bupivacaine 0.5% SDV PF 30ML VIAL ONE (07:05)
[2022-05-17] MEDS ORDERED: ceFAZolin *3* GM in NS PREMIX 3 GM/100 ML BAG IV ONE (07:32)
[2022-05-17] MEDS ORDERED: HYDROmorphone 1 MG/1 ML SYRINGE IV PRN (07:49)
[2022-05-17] MEDS ORDERED: Naloxone 0.4 mg VIAL 0.4 mg/ml 1 ml VIAL IV PRN (07:49)
[2022-05-17] MEDS ORDERED: Ondansetron 4 mg VIAL 2 MG/ML 2 ml VIAL IV PRN (07:49)
[2022-05-17] MEDS ORDERED: Acetaminophen IV 1 GM/100ML 1,000 MG/100 ML BAG IV PRN (07:49)
[2022-05-17] MEDS ORDERED: Ketamine HCL 50 mg/ml 10 ml VIAL (500 MG) ONE (08:20)
[2022-05-17] MEDS ORDERED: Glycopyrrolate IV 0.2 MG/ML 1 ML VIAL ONE (08:22)
[2022-05-17 08:56] LABS: INR 1.07 (0.88-1.18)
[2022-05-17] MEDS ORDERED: Midazolam 2 mg/2 ml VIAL 1 mg/ml 2 ml VIAL (2 mg) ONE (10:47)
[2022-05-17] MEDS ORDERED: Magnesium Hydroxide LIQ 30 ML UDC PO PRN (12:18)
[2022-05-17] MEDS ORDERED: Morphine 2 MG/ML SYRINGE IV PRN (12:18)
[2022-05-17] MEDS ORDERED: Lactulose 30 ml UDC PO PRN (12:18)
[2022-05-17] MEDS ORDERED: Scopolamine 1 mg/72hr PATCH TRANSDERM PRN (12:22)
[2022-05-17] MEDS: fentaNYL 100 mcg/2 ml 50 MCG/ML VIAL IV PRN ×3 (12:32→13:08)
[2022-05-17] MEDS ORDERED: ceFAZolin 1 GM ADVAN 1 GM in NS 0.9% 50 ML 50 ML IVPB SCH (13:00)
[2022-05-17] MEDS: Lactated Ringers 1000 ml BAG 1,000 ML IV SCH (14:43)
[2022-05-17] MEDS: ceFAZolin 1 GM ADVAN 1 GM in NS 0.9% 50 ML 50 ML IVPB SCH (16:44)
[2022-05-17] MEDS: Magnesium Hydroxide LIQ 30 ML UDC PO SCH (20:02)
[2022-05-18] MEDS: Lactated Ringers 1000 ml BAG 1,000 ML IV SCH (00:55)
[2022-05-18] MEDS: ceFAZolin 1 GM ADVAN 1 GM in NS 0.9% 50 ML 50 ML IVPB SCH ×2 (02:33→09:28)
[2022-05-18] MEDS ORDERED: Benzocaine/Menthol LOZ MT PRN (06:14)
[2022-05-18 06:32] LABS: Hematocrit 31 % (35-47); Hemoglobin 10.7 g/dL (12.0-16.0); Mean Platelet Volume 8.7 fL (7.4-10.4); Platelet Count 165 10^3/uL (150-450)
[2022-05-18 07:08] LABS: Calcium 8.4 mg/dL (8.6-10.3); Potassium 4.4 mmol/L (3.5-5.0); eGFR CKD-EPI 77.9 (>60)
[2022-05-18] MEDS ORDERED: Vitamin THERAPEUTIC TAB PO SCH (09:00)
[2022-05-18] MEDS: Magnesium Hydroxide LIQ 30 ML UDC PO SCH (09:21)
[2022-05-18 11:33] VITALS: BP 138/86
[2022-05-18 11:59] LABS: Urine Osmo 372 mOsm/kg (150-1150)
[2022-05-18 12:09] LABS: Osmolality Serum 291 mOsm/kg (275-295)
[2022-05-18 15:28] LABS: TSH Ultra Thyroid Stim Horm 0.76 mcIU/mL (0.34-5.60)
== END 2022-05-18 14:25 | disposition home or self-care (01) | DRG 301 ==
LOC: AA 06:32 → OBSVTOIN 06:32 → INTOOBSV 06:32 → SSU 12:18
PROVIDERS: ADMIT Orthopaedic Surgery Adult Reconstructive Orthopaedic Surgery; ATTEND Orthopaedic Surgery Adult Reconstructive Orthopaedic Surgery